=== PATIENT | female | born 1995 | race Caucasian/White ===

== ENCOUNTER 2020-06-28 17:15 | Emergency (ER) | payer BC, OTHER ==
[2020-06-28 17:42] VITALS: TEMP 98.8
[2020-06-28 18:00] VITALS: RESP 18
[2020-06-28] MEDS ORDERED: methylPREDNISolone SOD SUCCI 125 MG/2 ML VIAL IV STA (18:07)
[2020-06-28 18:56] VITALS: BP 128/84; PULSE 66
--- NOTE | 2020-06-28 18:59 | CT ---
EXAMINATION: CT brain wo con DATE AND TIME: 06/28/2020 6:45 PM CLINICAL INDICATION: PHH; head pain TECHNIQUE: Standard departmental protocol.; 1099.4; COMPARISON: None. FINDINGS: The calvarium is intact. There is no intracranial hemorrhage. There is no intracranial mass or mass effect. No definite new intra-axial or extra-axial attenuation defect. The paranasal sinuses, middle ear cavities, and mastoid sinus air cells are clear. The orbits are unr emarkable. Study limitation: Left earing provides metallic beam hardening artifact. IMPRESSION: NO ACUTE PROCESS.
[2020-06-28] MEDS ORDERED: KETOROLAC 15 MG/ML 1 ML VIAL IVP STA (19:10)
--- NOTE | 2020-06-28 19:10 | ED ---
General Adult HPI - General Source: patient Mode of arrival: ambulatory Limitations: no limitations <Monik Waddell - Last Filed: 06/28/20 19:31> <Ellen Vigil - Last Filed: 06/29/20 13:31> - General Chief complaint: Headache Stated complaint: Neuro Issues Time Seen by Provider: 06/28/20 17:48 - History of Present Illness Initial comments: 25-year-old female presenting today for chief complaint of jolting pain left posterior aspect of head. Patient states she's had jolting pain on and off that is not always there and when it does occur is for a few seconds for the past 2 days. Patient states she can undertake at she states it makes her jump when this happens. Patient denies a follows injuries neck trauma she denies neck pain nausea vomiting visual changes double vision she denies a weakness sensation deficits she denies any facial asymmetry or fevers. Patient denies any additional complaints upon arrival patient appears well and nontoxic distress. She states she was at an urgent care prior to coming here and they made her come here for imaging the states the lady at the urgent care said it c ould be "MS". (Monik Waddell) - Related Data Previous Rx's Medication Instructions Recorded predniSONE 50 mg PO DAILY 3 Days #3 tab 06/28/20 Allergies Allergy/AdvReac Type Severity Reaction Status Date / Time No Known Allergies Allergy Verified 06/28/20 17:42 Review of Systems ROS Other: All systems not noted in ROS Statement are negative. <Monik Waddell - Last Filed: 06/28/20 19:31> ROS Other: All systems not noted in ROS Statement are negative. <Ellen Vigil - Last Filed: 06/29/20 13:31> ROS Statement: Those systems with pertinent positive or pertinent negative responses have been documented in the HPI. Past Medical History Past Medical History: No Reported History Additional Past Medical History / Comment(s): psoriasis History of Any Multi-Drug Resistant Organisms: None Reported Additional Past Surgical History / Comment(s): tear duct surgery, right arm surgery, kidney surgery Past Psychological History: No Psychological Hx Reported Smoking Status: Former smoker Past Alcohol Use History: Occasional Past Drug Use History: None Reported <Monik Waddell - Last Filed: 06/28/20 19:31> General Exam Limitations: no limitations <Monik Waddell - Last Filed: 06/28/20 19:31> - General Exam Comments Initial Comments: General: The patient is awake and alert, in no distress Eye: +3 mm pupils are equal, round and reactive to light, extra-ocular movements are intact. No nystagmus. There is normal conjunctiva bilaterally. No signs of icterus. Ears, nose, mouth and throat: There are moist mucous membranes and no oral lesions. Neck: The neck is supple, there is no tenderness or JVD. No midline tenderness to palpation of the cervical spine. Negative Spurling's bilaterally. Cardiovascular: There is a regular rate and rhythm. No murmur, rub or gallop is appreciated. Respiratory: Lungs are clear to auscultation, respirations are non-labored, breath sounds are equal. No wheezes, stridor, rales, or rhonchi. Musculoskeletal: Normal ROM, no tenderness. Strength 5/5. Sensation intact. Pulses equal bilaterally 2+. Neurological: A&O x 3. CN II-XII intact, memory intact to immediately, intermediate and group home recall. Able to follow simple verbal. Able to name a common object (pen). High quality, labial (pa) and lingual (la) speech. Low quality posterior pharynx/larynx (ga) voice sounds. Able to express general knowledge (days in a week). No hemineglect or inattention noted. Finger agnosia (-) and spatially oriented (identified L index finger touched R shoulder with L index finger).Light touch and temperature sensation present over the face, chest, abdomen, back, UE bilaterally, and LE bilaterally. Able to localize point during point localization b/l and extinction. No visible bulk atrophy, hypertrophy, fasciculations, or myoclonus of the UE or LE b/l. Full PROM in UE and LE b/l. Bilateral muscle strength 5/5 for the following muscles: deltoid, biceps, triceps, brachioradialis, wrist extensors/flexor, hip flexor, hip abductors/adductors, hamstrings, quadriceps, feet dorsiflexors/plantar flexors. Finger to nose, finger to the examiners finger, and heel to pryor coordinated and accurate b/l. Coordinated and even demonstration of hand flip, finger to thumb, and toe tap b/l. Gait is coordinated and even in stride.. (-) pronator drift. No nuchal rigidity. Skin: Skin is warm and dry and no rashes or lesions are noted. Psychiatric: Cooperative, appropriate mood & affect, normal judgment. (Monik Waddell) Course Vital Signs 06/28/20 06/28/20 17:38 18:55 Temperature 98.8 F Pulse Rate 90 66 Respiratory 18 18 Rate Blood Pressure 138/97 128/84 O2 Sat by Pulse 97 99 Oximetry Medical Decision Making <Monik Waddell - Last Filed: 06/28/20 19:31> <Ellen Vigil - Last Filed: 06/29/20 13:31> - Medical Decision Making Exam no neck pain. she states it is not a headache but head pain/scalp pain. no lesions. intermittent appears neuralgia like. no focal neurological deficits. patient CT brain (-)> patient case discussed with Dr. Vigil at this time feel terry archuleta is stable for discharge with outpatient primary neurology follow-up with return for worsening symptoms patient's agreeable to this care plan discharge (Monik Waddell) I was available for consultation in the emergency department. The history and physical exam were done by the midlevel provider. I was consulted for this patients care. I reviewed the case with the midlevel provider and based on their presentation of the patient, I agree with the assessment, medical decision making and plan of care as documented. Chart was dictated using [employer] dictation software. Attempts were made to correct any dictation errors however some typographical errors may persist. Patient was seen during a national state of emergency due to the Covid-19 pandemic. (Ellen Vigil) - Lab Data Lab Results 06/28/20 Range/Units 18:14 Urine HCG, Qual Not Detected (Not Detectd) Disposition Is patient prescribed a controlled substance at d/c from ED?: No Time of Disposition: 19:10 <Monik Waddell - Last Filed: 06/28/20 19:31> <Ellen Vigil - Last Filed: 06/29/20 13:31> Clinical Impression: Head pain, Neuralgia Disposition: HOME SELF-CARE Condition: Good Instructions (If sedation given, give patient instructions): Acute Headache (ED) Additional Instructions: Please use medication as discussed. Please follow-up with family doctor in the next 2 days. Please return to emergency room if the symptoms increase or worsen or for any other concerns. Prescriptions: predniSONE 50 mg PO DAILY 3 Days #3 tab Referrals: Jl Martinez DO [Primary Care Provider] - 1-2 days
== END 2020-06-28 19:38 | disposition home or self-care (01) ==
LOC: EC 17:15
DX: M79.2 Neuralgia and neuritis, unspecified (principal); R51.9 Headache, unspecified; Z87.891 Personal history of nicotine dependence
CPT/HCPCS: 81025; 70450; 99284; 96374; 96375; J2930; J1885